=== PATIENT | male | born 2000 | race Two or more races ===

== ENCOUNTER 2021-03-12 14:37 | Emergency (ER) | payer OTHER ==
[~2021-03-12] VITALS: Ht 180.3 cm; Wt 72.1 kg
[2021-03-12] MEDS ORDERED: LEXAPRO20 MG PO (15:04)
[2021-03-12] MEDS ORDERED: LEVSIN0.125 MG PO (19:05)
[2021-03-12] MEDS ORDERED: PEPCID AC20 MG PO (19:05)
[2021-03-12] MEDS ORDERED: INTESTINEX680 M2 PO (19:10)
[2021-03-12] MEDS ORDERED: ONDANSETRON HCL4 MG PO (19:10)
== END 2021-03-12 19:40 | disposition home or self-care (01) ==
LOC: ER 14:37
DX: R10.32 Left lower quadrant pain (principal); F06.4 Anxiety disorder due to known physiological condition